=== PATIENT | female | born 1975 | race Caucasian/White ===

== ENCOUNTER 2022-07-27 15:46 | Outpatient (CLI) | payer OTHER, SELFPAY ==
--- NOTE | 2022-07-27 16:30 | MR_ITS ---
[address] [address] Phone:?[phone] Fax:?[phone] Referring Physician Information: Carol Lewis [address] [facility] [address] Phone:?[phone] Fax:?[phone] Patient:Deven Retana D.O.B:?1975 Sex:?Female Phone:?[phone] [facility] MRN:?[id number] Exam Date:?07/27/2022 ? EXAM: MRI of the RIGHT SHOULDER, without contrast CLINICAL INFORMATION: Female, 46 years old, with shoulder pain and swelling after lifting injury one month prior INDICATION: Evaluate rotator cuff insufficiency PRIOR SURGERY: None reported. PLAIN FILMS: None available. COMPARISONS: No prior MRIs available. TECHNICAL INFORMATION: Using a 1.5T MR scanner and a localizing surface coil: Coronals: PD, T2FS Sagittals: PDFS, T2 Axials: PD, PDFS SEDATION: None CONTRAST: None FINDINGS: Bones: Proximal humerus: No fracture or marrow edema/pathology. No humeral Hill-Sachs or reverse Hill-Sachs lesion/impaction or contusion. Glenoid: No fracture or marrow edema/pathology. No osseous Bankart lesion. Rotator cuff and muscles/tendons: Supraspinatus: Mild to moderate supraspinatus tendinosis with bursal sided fraying anteriorly, without more discrete appearance of rotator cuff tear or atrophy. Infraspinatus: No tendinopathy, tear or atrophy. Teres minor: No tendinopathy, tear or atrophy. Subscapularis: Mild subscapularis tendinosis without rotator cuff tear. Deltoid: No strain or atrophy. Coracoacromial arch: Acromion morphology: The acromion has type II morphology. No discrete subacromial osseous spur or os acromiale. Acromiohumeral space: The acromiohumeral space measures 5 mm. Coracohumeral space: The coracohumeral space is within normal limits. Acromioclavicular joint: Joint: No acute injury, arthropathy, or inferior hypertrophy. Ligaments: Coracoclavicular ligaments are intact. Bursae: Subacromial-subdeltoid: Trace subacromial bursal thickening/inflammation. Subcoracoid: No convincing subcoracoid bursal thickening/bursitis. Biceps tendon: The long head of the biceps tendon is present within the bicipital groove. The intra-articular and extra-articular segments are intact without tendinosis, tenosynovitis, or displacement. Glenohumeral joint: Effusion/cyst: No significant glenohumeral joint effusion. Articular cartilage: Humeral head: No osteochondral abnormalities. Glenoid: No osteochondral abnormalities. Loose bodies: No discrete intra-articular body within the joint. Labrum:?No discrete SLAP tear. No other definite evidence for labral tear. No paralabral ganglion cyst is identified. Inferior glenohumeral ligament/axillary pouch:?Intact. The axillary pouch is normal in thickness and signal. No evidence of adhesive capsulitis or capsular injury. IMPRESSION: 1. Tdfm-kx-gtfdaeys supraspinatus, and mild infraspinatus tendinosis without rotator cuff tear. 2. No labral tear or paralabral cyst. 3. No tendinopathy, tear, or displacement of the long head of the biceps tendon. 4. Mild narrowing of the acromiohumeral space may predispose to clinical symptoms of subacromial impingement. Trace subacromial bursal thickening/inflammation. 5. No osteochondral defect. KME Electronically signed on 07/29/2022 12:24:00 PM by Yamileth Wylie M.D.
== END 2022-07-27 15:47 | disposition home or self-care (01) ==
LOC: MRI 15:47
PROVIDERS: PCP Family Medicine; Visit Provider Physician Assistant Surgical
DX: M25.511 Pain in right shoulder (principal); M25.311 Other instability, right shoulder; M75.51 Bursitis of right shoulder
CPT/HCPCS: 73221

== ENCOUNTER 2022-09-20 08:00 | Outpatient (RCR) | payer OTHER, SELFPAY | END 2022-11-07 11:04 | disposition home or self-care (01) | PROVIDERS: PCP Physician Assistant Surgical; Visit Provider Physician Assistant Surgical | DX: M25.311 Other instability, right shoulder (principal); Z51.89 Encounter for other specified aftercare | CPT/HCPCS: 97035; 97110; 97140; 97162 ==

== ENCOUNTER 2023-04-19 07:53 | Day surgery (SDC) | payer OTHER, SELFPAY ==
[2023-04-19] MEDS: LACTATED RINGERS 1000 ML 1,000 ML 100 ML IV ×2 (08:15→11:38)
[2023-04-19 08:17] VITALS: BP 118/88; PULSE 85; RESP 16; TEMP 37.4; O2SAT 99
[2023-04-19 08:23] VITALS: BMI 28.8
--- NOTE | 2023-04-19 09:15 | CRLHL7_ITS ---
For Patients: As a result of the Century Cures Act, medical imaging exams and procedure reports are released immediately into your electronic medical record. You may view this report before your referring provider. If you have questions, please contact your health care provider. BREAST WIRE LOCALIZATION USING ULTRASOUND GUIDANCE CLINICAL HISTORY: Atypia, benign calcifications, presents for surgical excision. LATERALITY: RIGHT breast. LESION: Clip is present in the upper outer quadrant of the RIGHT breast 8 cm from the nipple corresponding to the stereotactic biopsy. LOCALIZATION WIRE: K[place]ans hookwire. TECHNIQUE: The localization wire was placed using real-time ultrasound guidance with image documentation. Cranial-caudal and medial-lateral digital mammograms were obtained after localization wire placement. CONSENT and TIME OUT: The procedure, risks, and alternatives were explained to the patient and a consent was signed. [place] Protocol was followed including pre-procedure verification that relevant information/documentation was available, reviewed and properly matched to the patient; consent accurate and complete; and equipment and supplies available. Time Out was conducted just prior to starting procedure to verify the four required elements: patient identity, correct side/site marked (if applicable), procedure, relevant images/results properly labeled and displayed (if applicable). PROCEDURE: The skin was prepped with ChloraPrep and 8 cc of 1% lidocaine was injected for local anesthesia. The localization wire was placed within or near the targeted breast lesion using ultrasound guidance. The patient tolerated the procedure well. PROXIMITY OF WIRE TO LESION: The wire is located 2.8 millimeters anterior to the biopsy clip on the postprocedure mammogram images. IMPRESSION: Successful breast wire localization. ACR not applicable Dictated by Willian Dukes MD @ 04/19/2023 10:08:59 AM jj/Dictated by: Willian Dukes MD @ 04/19/2023 10:09:00 AM (Electronically Signed)
--- NOTE | 2023-04-19 10:00 | CRLHL7_ITS ---
For Patients: As a result of the Cures Act, medical imaging exams and procedure reports are released immediately into your electronic medical record. You may view this report before your referring provider. If you have questions, please contact your health care provider. RIGHT BREAST SPECIMEN RADIOGRAPH CLINICAL HISTORY: RIGHT breast surgical excision. COMPARISON: 02/21/2023. FINDINGS: Two views of the specimen submitted. Localization wire and biopsy clip noted. IMPRESSION: The specimen contains the localization wire and biopsy clip. Results were immediately verbally reported to Dr. Domínguez. ACR not applicable Dictated by Willian Dukes MD @ 04/19/2023 12:21:44 PM jj/Dictated by: Willian Dukes MD @ 04/19/2023 12:21:00 PM (Electronically Signed)
--- NOTE | 2023-04-19 10:15 | MM_ITS ---
Final Report Patient: CLAUDIA FOURNIER Facility:?[facility] Patient ID:?[id number] :?1975 Study:?XRay Breast Right SPECIMEN-04/19/2023 12:12:33 PM Ordering Physician:Tommie Browne Final Report: RIGHT BREAST SPECIMEN RADIOGRAPH CLINICAL HISTORY: RIGHT breast surgical excision. COMPARISON: 02/21/2023. FINDINGS: Two views of the specimen submitted. Localization wire and biopsy clip noted. IMPRESSION: The specimen contains the localization wire and biopsy clip. Results were immediately verbally reported to Dr. Domínguez. ACR not applicable Dictated by Willian Dukes MD @ 04/19/2023 12:21:44 PM jj/Dictated by: Willian Dukes MD @ 04/19/2023 12:21:00 PM (Electronic Signature)
[2023-04-19] MEDS: CEFAZOLIN 2 GM INJ IVP (10:40)
--- NOTE | 2023-04-19 12:06 | W.ANESCHARGE ---
Anesthesia Charges Start Date/Time Anesthesia Start Date: 04/19/23 Anesthesia Start Time: 10:33 Stop Date/Time Anesthesia Stop Date: 04/19/23 Anesthesia Stop Time: 12:24
--- NOTE | 2023-04-19 12:18 | P.GSOP_ITS ---
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 These were biopsied and found to contain atypical lobular Hyperplasia. She was enrolled in our high-risk screening protocol, however we discussed excisional biopsy to rule out concomitant malignancy which can occur 15% of the time verses surveillance. After discussion she agreed to proceed with excisional biopsy. Procedure Description: After discussing the risks and benefits of the procedure, the patient signed inf ormed consent.? The operative site was marked and the patient was brought to the operating room and placed on the operating table in supine position.? Care was taken to pad the patient's pressure points.?? The patient was then Given sedation by anesthesia.?? The operative site was then prepped and draped in the usual sterile fashion.? A time-out was then performed. A periareolar incision was then created in the upper outer quadrant of the right breast. Dissection was taken down into the subcutaneous tissue and a subcutaneous plane was then developed and taken out laterally until the wire was encountered. This was grasped and then pulled through the skin into the incision. I then using the wire as guidance, dissected out using cautery a mass of breast tissue around the wire. I did take my dissection down to the chest wall as the clip was noted to be deep to the wire and deep within the breast. This was then inked and sent for x-ray. The specimen showed that the clip and the wire were both present within the specimen. The wound was examined for hemostasis which appeared excellent. Local anesthetic was injected into the pectoralis muscle which was visible at the base of the wound. The wound was then closed with 3 0 Vicryl dermal and 4 0 Monocryl running subcuticular suture. Sterile dressings were then applied. ? The patient was then woken and transported to the recovery area in stable condition. ? The patient tolerated the procedure well. Findings: Right breast specimen X-ray showing clip and wire. Anesthesia: MAC Surgeon: Hollie Domínguez MD Estimated blood loss (mL): 10 Specimen: Other Additional Specimen Information: 1) right breast lump/ mass Condition: stable Disposition: same day
[2023-04-19 12:22] VITALS: BP 113/64; PULSE 70; RESP 16; TEMP 36.3; O2SAT 96
--- NOTE | 2023-04-19 12:25 | W.ANESCHARGE ---
Anesthesia Charges Start Date/Time Anesthesia Start Date: 04/19/23 Anesthesia Start Time: 10:33 Stop Date/Time Anesthesia Stop Date: 04/19/23 Anesthesia Stop Time: 12:24
[2023-04-19] MEDS: ACETAMINOPHEN 325 MG TABLET 650 MG PO (12:28)
[2023-04-19 12:50] VITALS: BP 114/72; PULSE 72; RESP 16; O2SAT 97
== END 2023-04-19 13:12 | disposition home or self-care (01) ==
PROVIDERS: PCP Family Medicine; Visit Provider Surgery
PROC: (CPT 19125; principal; 2023-04-19 10:15)
DX: D05.01 Lobular carcinoma in situ of right breast (principal); N60.91 Unspecified benign mammary dysplasia of right breast
CPT/HCPCS: 19125; 00400; 19285; 77065; 88307; 88341; 88342; A9270; C1769; J0690; J1100; J1885; J2250; J2405; J2704; J3010; J7120

== ENCOUNTER 2023-06-27 12:54 | Outpatient (RCR) | payer OTHER, SELFPAY | END 2023-12-24 23:59 | disposition home or self-care (01) | LOC: CCIC 12:54 | PROVIDERS: Visit Provider Internal Medicine Hematology & Oncology | DX: D05.01 Lobular carcinoma in situ of right breast (principal); Z79.818 Long term (current) use of other agents affecting estrogen receptors and estrogen levels; N60.91 Unspecified benign mammary dysplasia of right breast | CPT/HCPCS: 99202; 99205 ==

== ENCOUNTER 2023-08-24 08:06 | Outpatient (CLI) | payer OTHER, SELFPAY ==
--- NOTE | 2023-08-24 08:15 | CRLHL7_ITS ---
For Patients: As a result of the 21st Century Cures Act, medical imaging exams and procedure reports are released immediately into your electronic medical record. You may view this report before your referring provider. If you have questions, please contact your health care provider. BILATERAL BREAST MRI WITHOUT AND WITH GADOLINIUM CLINICAL HISTORY: 47-year-old female with LCIS, ADH of the RIGHT breast. INDICATION FOR BREAST MRI: Screening breast MRI in this high-risk woman. COMPARISON STUDIES: Mammogram 02/21/2023. CONTRAST: Dotarem 20 mL. TECHNIQUE: The patient was positioned prone using a breast coil. Multiple imaging sequences were obtained using 1-1.5 mm thick slices with no gap. The image sequences include T2-weighted STIR in the axial plane, T1-weighted nonfat-saturated gradient echo in the axial plane, pre- and post-contrast T1-weighted FLASH 3D with fat suppression in the axial plane, and T1-weighted FLASH high-resolution 3D with fat suppression in the sagittal plane. Image post-processing was performed on a [employer] TEAM workstation. Complex 3D rendering including maximum intensity projections (MIPS) and volumetric renderings were obtained to optimize visualization of the extent of pathology and relationship to the nipple, skin, and chest wall. This aids in determining feasibility of breast conservation surgery. Subtraction, multiplanar reconstruction, mean curve determination, and angiogenesis mapping were also performed. The study was technically adequate. FINDINGS: Amount of Fibroglandular Tissue: Heterogeneous fibroglandular tissue. Breast Background Enhancement: Marked. RIGHT/LEFT Breast: Postsurgical changes of the RIGHT upper outer breast. Marked background enhancement with scattered foci of enhancement. No suspicious enhancement seen. There are BILATERAL small cysts present. Lymph Nodes: No abnormal axillary lymph nodes are seen. IMPRESSIONS AND RECOMMENDATIONS: No MRI findings for malignancy in either breast. Recommend that the patient continue with yearly screening mammography. If screening MRIs are felt to be indicated, recommend that these be offset at 6-month intervals with the screening mammograms. BI-RADS Category 2: Benign MELINDA SINGH M.D. Diagnostic/Breast Radiologist [email or web address] Transcribed: 11:[address]/Dictated by: Melinda Singh MD @ 08/28/2023 11:47:00 AM (Electronically Signed)
== END 2023-08-24 08:07 | disposition home or self-care (01) ==
PROVIDERS: Visit Provider Surgery
DX: Z12.39 Encounter for other screening for malignant neoplasm of breast (principal); N60.91 Unspecified benign mammary dysplasia of right breast; D05.00 Lobular carcinoma in situ of unspecified breast
CPT/HCPCS: 77049; A9575

== ENCOUNTER 2024-02-22 11:16 | Outpatient (CLI) | payer OTHER, SELFPAY ==
--- OUTSIDE RECORDS SUMMARY | 2024-02-22 11:21 | XMS_ITS | Clinical Summary ---
Author Organization [facility] Address [place], [place] [address] Care Team Providers Care Legend Maker Name Role Phone Hollie Domínguez MD Primary Care Provider + Allergies Active Allergy Reactions Criticality Noted Date Comments Sulfa (Sulfonamide Antibiotics) Vomiting 04/2011 Medications Medication Sig Dispensed Refills Start Date End Date Status loratadine (CLARITIN) 10 mg Tab Take by mouth. 0 05/28/2012 Active acetaminophen (TYLENOL) 325 mg tablet Take by mouth every 4 hours if needed. Max acetaminophen dose: 4000mg in 24 hrs. 0 02/22/2016 Active calcium carbonate-vitamin D3 500mg (1,250mg) -600 unit tab Take by mouth. 0 02/13/2017 Active ibuprofen (ADVIL; MOTRIN) 200 mg tablet Take 3 tablets by mouth every 6 hours. 0 02/25/2018 Active cannabidiol, CBD, extract 100 mg/mL soln Take 500 mg by mouth. 0 12/26/2018 Active montelukast (SINGULAIR) 10 mg tabletIndications: Mild intermittent asthma without complication,Seaso nal allergies Take 1 Tablet (10 mg) by mouth at bedtime. 90 tablet. 3 01/05/2022 Active albuterol HFA (PRO-AIR; VENTOLIN; PROVENTIL) 90 mcg/actuation inhalerIndications :Mild intermittent asthma without complication Inhale 2 Puffs by mouth every 4 hours if needed for Shortness of Breath 1st choice or Wheezing 1st choice. 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 Asthma, mild intermittent Overview: uses MDI with colds Immunizations Name Administration Dates Next Due COVID-19 vaccine ([employer] 30mcg/0.3mL) P F, MDV 10/05/2020,09/15/2020 DTaP 1978,01/31/1978 Influenza, IIV4 (=>6mos) MDV 06/22/2021 MMR 04/04/1978 Polio Virus, Unspecified 1978,01/31/1978 Td (Age >=7 Years) 11/17/2003,01/15/1992 Tdap 01/05/2022,01/02/2010 Family History Medical History Relation Name Comments Good Health Father Diabetes Maternal Aunt Heart Disease Maternal Grandfather Good Health Mother Cancer-breast No Family History Relation Name Status Comments Father Maternal Aunt Maternal Grandfather Mother Social History Tobacco Use Types Packs/Day Years Used Date Smoking Tobacco: Never Smokeless Tobacco: Never Tobacco Cessation:Counseling Given: Yes Alcohol Use Standard Drinks/Week Comments Yes 1 (1 standard drink = 0.6 oz pur e alcohol) sometimes PHQ-2 Answer Date Recorded PHQ-2 TOTAL SCORE 1 01/05/2022 Social Connections Answer Date Recorded Frequency of Communication with Friends and Fami ly Not on file 01/05/2022 Sex and Gender Information Value Date Recorded Sex Assigned at Not on file Gender Identity Not on file Sexual Orientation Not on file Obstetrics History Para Term AB IAB SAB Ectopic Multiple Livin g Live Births 2 2 2 0 0 0 0 0 0 2 2 Date Outcome GA Total Labor Labor/2nd/3rd Weight Sex Delivery Anes PTL Joyce A1 A5 Name Cl in 07/31 Term 40w 0d 19h 00m/ 3.66 kg (8 lb 1 oz) F Vag Epidu ral Payton ng alyss a Delivery Location:[place] 07/20 Term 40w 0d 19h 00m/ 3.83 kg (8 lb 7 oz) M Vag Epidu ral Payton ng kristal s Delivery Location:[place] Last Filed Vital Signs Vital Sign Reading Time Taken Comments Blood Pressure 116/71 01/05/2022 4:09 PM CDT Pulse 71 01/05/2022 4:09 PM CDT Temperature 36.9 ??C (98.4 ??F) 02/25/2018 2:25 PM CD T Respiratory Rate 16 02/22/2017 9:39 AM CDT Oxygen Saturation 99% 01/05/2022 4:09 PM CDT Inhaled Oxygen Concentration - - Weight 82.7 kg (182 lb 4.8 oz) 01/05/2022 4:09 P M CDT Height 169.6 cm (5' 6.77) 01/05/2022 4:09 PM CD T Body Mass Index 28.75 01/05/2022 4:09 PM CDT Plan of Treatment Health Maintenance Due Date Last Done Comments HIV for age 15-65 12/04/1990 Hepatitis C screening for age 18-79 12/04/1993 BMI (ht and wt on same day) for age 18+ 01/05/2023 01/05/2022, 12/26/2018, 02/13/2017, Additional history exists Depression screening for age 12+ 01/05/2023 01/05/2022, 12/26/2018, 12/26/2018, Additional history exists COVID-19 vaccine series ( season) 2023 07/12/2022, 10/05/2020, 09/15/2020 Lipids for age 45-75 12/27/2023 12/26/2018, 04/20/2016, 04/15/2015, Additional history exists Pap test for age 21-65 12/27/2023 9, 12/26/2018, 04/20/2016, Additional history exists Colonoscopy through age 75 04/14/202404/14, 04/14/2019, 04/14/2019 Mammogram for age 45-75 04/19/2024 04/19/20 23, 02/16/2023, 02/13/2023 Influenza for age 9-49 05/25/2024 06/22/2021 Tetanus booster 01/06/2032 01/05/2022, 12/23, 01/02/2010 ([facility] Additional history exists Tdap Completed 01/05/2022, 01/02/2010 Pneumococcal series for age 6-64 Aged Out No longer eligible based on patient's age to complete this topic Procedures Procedure Name Priority Date/Time Associated Diagnosis Comments SCAN-MAMMOGRAPHY REPORT 04/19/2023 12:00 AM CDT COLONOSCOPY SCREENING Routine 04/14/2019 12:00 PM CDT Colon cancer screening LIPID PANEL W REFLEX MEASURED LDL Add On 12/26/2018 11:22 AM CDT Lipid screening CREDIT CLERK THIN PREP PAP SCREEN IMAGED Routine 12/26/2018 11:10 AM CDT Screening for malignant neoplasm of cervix from Last 3 Months or Most Recently Relevant to Health Maintenance Results * SCAN-MAMMOGRAPHY REPORT (04/19/2023 12:00 AM CDT) Anatomical Region Laterality Modality Other Scanner OTHER * COLONOSCOPY SCREENING (04/14/2019 12:00 PM CDT) Dianna Estrada MD GI PROCEDURE ORD * (ABNORMAL) LIPID PANEL W REFLEX MEASURED LDL (12/26/2018 11:22 AM CDT) CHOLESTEROL,TOTAL 181 100 - 199 mg/dL 12/26/2018 4:50 PM CDT [facility] TRIGLYCERIDES 166(H) <150 mg/dL 12/26/2018 4:50 PM CDT [facility] HDL CHOLESTEROL 42 >40 mg/dL 9 4:50 PM CDT [facility] NON-HDL CHOLESTEROL 139 <145 mg/dl 12/26/2018 4:50 PM CDT [facility] CHOL/HDL RATIO 4.31 <4.50 12/26/2018 4:50 PM CDT [facility] LDL CHOLESTEROL 106 <=130 mg/dL 12/26/2018 4:50 PM CDT [facility] PROVIDER ORDERED STATUS RANDOM 12/26/2018 4:50 PM CDT [facility] [employer] [facility] Blood BLOOD SPECIMEN / Unknown Venipuncture / Unknown 12/26/2018 11:22 AM CDT 12/26/2018 11:24 AM CDT Dianna Estrada MD CHEMISTRY [facility] [address] [place] [address], [place] * CREDIT CLERK THIN PREP PAP SCREEN IMAGED [[id number]] (12/26/2018 11:10 AM CDT) Case Report Gynecologic Cytology Report ? Case: [id number] ? Authorizing Provider: ??Dianna Estrada MD ? Collected: ? 12/26/2018 1110 ? Ordering Location: ? [facility] ?? Received: ?12/26/2018 1720 ? Clinic ? First Screen: ?[facility] [place] ? Specimen: ?CREDIT CLERK ThinPrep Vial Screening, Cervical ? 01/07/2019 9:42 AM CDT [facility] INTERPRETATION/ RESULT NEGATIVE FOR INTRAEPITHELIAL LESION OR MALIGNANCY (NIL) (none) 01/07/2019 9:42 AM T [facility] IMEN ADEQUACY Satisfactory for evaluation Endocervical component present 01/07/2019 9:42 AM CDT [facility] HPV REQUEST HPV and PAP 01/07/2019 9:42 AM CDT [facility] Date of LMP 12/08/2018 01/07/2019 9:42 AM CDT [facility] Last Pap Date 04/20/16 01/07/2019 9:42 AM CDT [facility] Last Pap Result NIL 9 9:42 AM [facility] Abnormal Pap or [place] Bx in last 5 years No 01/07/2019 9:42 AM [facility] Menstrual Status Regular Periods 01/07/2019 9:42 AM CDT [facility] [place] Bx Done Today No 01/07/2019 9:42 AM T [facility] Additional Information None given 01/07/2019 9:[address] [facility] Automated Review Successful 01/07/2019 9:[address] [facility] Comment:Specimen processed s uccessfully by automated rock dust sprayer device, ThinPrep Imaging System, [employer] ANCILLARY TESTING CREDIT CLERK HPV Ordered, Please see separate report 01/07/2019 9:[address] [facility] Note The pap test is a screening technique, not a diagnostic procedure. ??It is used primarily to screen for squamous cancers and precursor lesions. ??Published studies have shown that it is subject to both false negative and false positive results. ??The pap test should not be used as the sole means to diagnose or exclude pre-malignant and malignant lesions. Cytology is screened and interpreted at [facility], Central Laboratory - [address] [facility] [address], [place] [address] and [facility] - [address]; [place] [address] and [facility] - [address]; [place] [address] and [facility] [address]; [place] [address] 01/07/2019 9:42 AM CDT [facility]TRAL LABORATORY Other (Cervical) Non-Blood / Unknown 12/26/2018 11:10 AM CDT 12/26/2018 5:20 PM CDT Dianna Estrada MD PATHOLOGY/CYTOLOGY [facility] [address] [place] [address], from Last 3 Months or Most Recently Relevant to Health Maintenance Care Teams Legend Maker Relationship Specialty Start Date End Date Hollie Domínguez MD [address] [place] [address] PCP - General Surgery - General 02/16/23
--- NOTE | 2024-02-22 11:30 | CRLHL7_ITS ---
For Patients: As a result of the Century Cures Act, medical imaging exams and procedure reports are released immediately into your electronic medical record. You may view this report before your referring provider. If you have questions, please contact your health care provider. BILATERAL SCREENING MAMMOGRAM WITH COMPUTER-AIDED DETECTION AND TOMOSYNTHESIS TECHNIQUE: CC and MLO views were obtained. These mammographic images have been obtained using full-field digital technique. These mammographic images were interpreted with the benefit of computer-aided detection. Breast Tomosynthesis was used in this interpretation. COMPARISON FILM: 02/13/23, 02/16/23. FINDINGS: The breasts are heterogeneously dense, which may obscure small masses. IMPRESSION: There is no radiographic evidence for malignancy. ASSESSMENT: BI-RADS Category 2: Benign RECOMMENDATION: Routine screening mammogram in 1 year. A lay language report of this examination will be provided to the patient. Willian Dukes M.D. Diagnostic Radiologist [email or web address] SP/Dictated by: Willian Dukes MD @ 02/25/2024 11:43:00 AM (Electronically Signed)
== END 2024-02-22 11:17 | disposition home or self-care (01) ==
LOC: MAMMO 11:20
PROVIDERS: PCP Student in an Organized Health Care Education/Training Program; Visit Provider Surgery
DX: Z12.31 Encounter for screening mammogram for malignant neoplasm of breast (principal); R92.2 Inconclusive mammogram
CPT/HCPCS: 77063; 77067

== ENCOUNTER 2024-09-03 09:06 | Outpatient (CLI) | payer OTHER, SELFPAY ==
--- NOTE | 2024-09-03 09:15 | CRLHL7_ITS ---
For Patients: As a result of the Century Cures Act, medical imaging exams and procedure reports are released immediately into your electronic medical record. You may view this report before your referring provider. If you have questions, please contact your health care provider. BILATERAL BREAST MRI WITHOUT AND WITH GADOLINIUM CLINICAL HISTORY: Personal history of ADH with excisional biopsy left breast 04/12/2023 INDICATION FOR BREAST MRI: Screening in this woman with increased risk for breast cancer COMPARISON STUDIES: Screening mammogram February 13, 2023, right breast diagnostic February 16, 2023, stereo biopsy February 21, 2023. Breast MRI 08/24/2023 CONTRAST: 20 mL Dotarem TECHNIQUE: The patient was positioned prone using a breast coil. Multiple imaging sequences were obtained using 1-1.5 mm thick slices with no gap. The image sequences include T2-weighted STIR in the axial plane, T1-weighted nonfat-saturated gradient echo in the axial plane, pre- and post-contrast T1-weighted FLASH 3D with fat suppression in the axial plane, and T1-weighted FLASH high resolution 3D with fat suppression in the sagittal plane. Image post-processing was performed on a Doculogy workstation. Complex 3D rendering including maximum intensity projections (MIPS) and volumetric renderings were obtained to optimize visualization of the extent of pathology and relationship to the nipple, skin, and chest wall. This aids in determining feasibility of breast conservation surgery. Subtraction, multiplanar reconstruction, mean curve determination, and angiogenesis mapping were also performed. The study was technically adequate. FINDINGS: Amount of Fibroglandular Tissue: Heterogeneous. Breast Background Enhancement: Moderate RIGHT Breast: No suspicious mass or non mass enhancement LEFT Breast: No suspicious mass or non mass enhancement Lymph Nodes: No suspicious lymph nodes IMPRESSIONS AND RECOMMENDATIONS: Negative for signs of malignancy. Follow up with annual screening mammography. It appears that the patient is overdue for bilateral screening mammogram at this time. If continuing breast MRI this is best offset from mammogram by 6 months. BI-RADS: 1-negative Dictated by Zina Spencer MD @ 09/05/2024 12:08:47 PM (Electronically Signed)
--- NOTE | 2024-11-11 13:12 | ONC.NURNOTE ---
LM for pt checking in if interested in f/u with Med Onc to discuss chemo-prevention.
== END 2024-09-03 09:07 | disposition home or self-care (01) ==
LOC: MRI 09:07
PROVIDERS: PCP Student in an Organized Health Care Education/Training Program; Visit Provider Surgery
DX: Z12.39 Encounter for other screening for malignant neoplasm of breast (principal); N60.91 Unspecified benign mammary dysplasia of right breast; D05.00 Lobular carcinoma in situ of unspecified breast
CPT/HCPCS: 77049; C8908; C8937; A9575

== ENCOUNTER 2024-12-24 10:01 | Outpatient (CLI) | payer OTHER, SELFPAY ==
--- NOTE | 2024-12-24 10:15 | CRLHL7_ITS ---
For Patients: As a result of the Century Cures Act, medical imaging exams and procedure reports are released immediately into your electronic medical record. You may view this report before your referring provider. If you have questions, please contact your health care provider. INDICATION: DERMOID CYST COMPARISON: 12/27/2018 TECHNIQUE: 2D priest scale and color Doppler images were acquired of the pelvis using a transabdominal and transvaginal approach. FINDINGS: Sonographic images demonstrate a normal size and smooth outer contour of the uterus. Uterus measures 11.0 cm in length by 5.7 cm in AP diameter by 6.4 cm in transverse dimension. The myometrium has a normal uniform echotexture. The endometrial lining appears thickened and heterogeneous measures 1.7 cm in composite thickness. The right ovary measures 4.4 x 2.6 x 3.5 cm in size and the left ovary measures 4.2 x 3.2 x 3.6 cm. The ovaries demonstrate normal arterial and venous blood flow on color Doppler analysis. There are no suspicious fluid collections within the cul-de-sac. Solid nonvascular structure within the left ovary measures 10 x 10 x 11 millimeters, previously measuring 12 x 11 x 11 millimeters. Simple cyst left ovary also present which measures 2.0 cm IMPRESSION: Stable dermoid cyst left ovary. Dictated by Willian Dukes MD @ 12/24/2024 1:05:47 PM (Electronically Signed)
--- NOTE | 2024-12-24 11:15 | CRLHL7_ITS ---
For Patients: As a result of the Century Cures Act, medical imaging exams and procedure reports are released immediately into your electronic medical record. You may view this report before your referring provider. If you have questions, please contact your health care provider. INDICATION: Right upper quadrant abdomen pain TECHNIQUE: Ultrasound abdomen limited. Sonographic images of the right upper quadrant were obtained using priest-scale and color Doppler images. COMPARISON: None FINDINGS: Liver: Normal in size and echotexture. No masses. No intrahepatic biliary dilatation. Gallbladder: Status post cholecystectomy Common bile duct: 6 mm. Pancreas: Partially obscured by bowel gas without discrete lesion. Right kidney: Normal in size. Normal echotexture and cortex. No masses, stones, or hydronephrosis. Vasculature: Proximal abdominal aorta and IVC are normal. IMPRESSION: Unremarkable right upper quadrant ultrasound status post cholecystectomy. Dictated by Hood Johnson MD @ 12/24/2024 12:46:16 PM (Electronically Signed)
== END 2024-12-24 10:02 | disposition home or self-care (01) ==
LOC: US 10:02
PROVIDERS: PCP Family Medicine; Visit Provider Family Medicine
DX: R10.11 Right upper quadrant pain (principal); D27.1 Benign neoplasm of left ovary
CPT/HCPCS: 76705; 76830; 76856; 93976

== ENCOUNTER 2025-01-09 13:09 | Outpatient (CLI) | payer OTHER, SELFPAY ==
--- NOTE | 2025-01-09 14:31 | P.ANES_ITS ---
Anesthesia Charges Start Date/Time Anesthesia Start Date: 01/09/25 Anesthesia Start Time: 14:05 Stop Date/Time Anesthesia Stop Date: 01/09/25 Anesthesia Stop Time: 14:28 Coding CPT Codes CPT Codes: ANES LWR INTST SCR COLSC - 26913 ([id number]) P2 - PATIENT W/MILD SYST DISEASE, QK - ORDER ENTRY REPRESENTATIVE 2-4 CNCRNT ANES PROC, QX - METAL NUMERICAL TOOL PROGRAMMER SVC W/ MD MED DIRECTION
--- NOTE | 2025-01-09 14:31 | W.ANESCHARGE ---
Anesthesia Charges Start Date/Time Anesthesia Start Date: 01/09/25 Anesthesia Start Time: 14:05 Stop Date/Time Anesthesia Stop Date: 01/09/25 Anesthesia Stop Time: 14:28 Coding CPT Codes CPT Codes: ANES LWR INTST SCR COLSC - 42040 ([id number]) P2 - PATIENT W/MILD SYST DISEASE, QK - EDITOR NEWSPAPER 2-4 CNCRNT ANES PROC, QX - TRAVELING INVENTORY ASSOCIATE SVC W/ MD MED DIRECTION
--- NOTE | 2025-01-09 15:19 | P.ANES_ITS ---
Anesthesia Charges Start Date/Time Anesthesia Start Date: 01/09/25 Anesthesia Start Time: 14:05 Stop Date/Time Anesthesia Stop Date: 01/09/25 Anesthesia Stop Time: 14:28 Coding CPT Codes CPT Codes: ANES LWR INTST SCR COLSC - 33501 ([id number]) P2 - PATIENT W/MILD SYST DISEASE, QK - DIVISION HEAD 2-4 CNCRNT ANES PROC, QX - VALANCE CUTTER SVC W/ MD MED DIRECTION
--- NOTE | 2025-01-09 15:19 | W.ANESCHARGE ---
Anesthesia Charges Start Date/Time Anesthesia Start Date: 01/09/25 Anesthesia Start Time: 14:05 Stop Date/Time Anesthesia Stop Date: 01/09/25 Anesthesia Stop Time: 14:28 Coding CPT Codes CPT Codes: ANES LWR INTST SCR COLSC - 11658 ([id number]) P2 - PATIENT W/MILD SYST DISEASE, QK - MICROFILM PROCESSOR 2-4 CNCRNT ANES PROC, QX - MARKET CONSULTANT SVC W/ MD MED DIRECTION
== END 2025-01-09 13:10 | disposition home or self-care (01) ==
LOC: OP CLINIC 13:09
PROVIDERS: PCP Family Medicine; Visit Provider Internal Medicine Gastroenterology
DX: Z12.11 Encounter for screening for malignant neoplasm of colon (principal); Z86.0101 Personal history of adenomatous and serrated colon polyps; Z83.719 Family history of colon polyps, unspecified
CPT/HCPCS: 00812; 45378; J2704

== ENCOUNTER 2025-03-19 09:02 | Outpatient (CLI) | payer OTHER, SELFPAY ==
--- NOTE | 2025-03-19 09:15 | CRLHL7_ITS ---
For Patients: As a result of the Century Cures Act, medical imaging exams and procedure reports are released immediately into your electronic medical record. You may view this report before your referring provider. If you have questions, please contact your health care provider. INDICATION: BLATERAL SCREENING MAMMOGRAM, ASYMPTOMATIC 49 Y/O FEMALE COMPARISON: 02/22/2024, 02/13/2023 TECHNIQUE: Digital mammogram in CC and MLO projections including computer-aided detection (CAD) and tomosynthesis. BREAST COMPOSITION: The breasts are heterogeneously dense, which may obscure small masses. FINDINGS: No suspicious findings. ASSESSMENT: BI-RADS 1 Negative RECOMMENDATION: Annual screening mammogram. A lay language report of this examination will be provided to the patient. Dictated by: Willian Dukes MD @ 03/20/2025 09:25:34 (Electronically Signed)
--- OUTSIDE RECORDS SUMMARY | 2025-03-20 00:49 | XMS_ITS | Clinical Summary ---
Author Organization [facility] Address [address] [place] [address] Care Team Providers Care Power Digger Operator Name Role Phone Helen Mcdaniel DO Primary Care Provider [phone] Allergies Active Allergy Reactions Criticality Noted Date Comments Sulfa (Sulfonamide Antibiotics) Vomiting 04/2011 Medications loratadine (CLARITIN) 10 mg Tab Take by mouth. 0 05/28/20 12 Active acetaminophen (TYLENOL) 325 mg tablet Take by mouth every 4 hours if needed. Max acetaminophen dose: 4000mg in 24 hrs. 0 02/22/20 16 Active calcium carbonate-vitami n D3 500mg (1,250mg) -600 unit tab Take by mouth. 0 02/14/20 17 Active ibuprofen (ADVIL; MOTRIN) 200 mg tablet Take 3 tablets by mouth every 6 hours. 0 02/26/20 18 Active albuterol HFA 90 mcg/actuation inhalerIndicatio ns:Mild intermittent asthma without complication (HC) Inhale 2 Puffs by mouth every 4 hours if needed for Shortness of Breath 1st choice or Wheezing 1st choice. 36 g 12/11/19 25 Active montelukast 10 mg tabletIndication s:Mild intermittent asthma without complication (HC),Seasonal allergies Take 1 Tablet (10 mg) by mouth at bedtime. 90 Tablet 3 12/11/19 25 Active polyethylene glycol-electroly te 236-22.74-6.74 -5.86 gram suspensionIndica tions:Encounter for screening colonoscopy Drink 2 liters (half the bottle) the day before colonoscopy and 2 liters (remaining prep) 6 hours prior to colonoscopy appointment. 4000 mL 12/13/19 25 Active Active Problems Problem Noted Date Diagnosed Date Cervical cancer screening 12/25/2024 Overview (12/25/2024): 11/2024 NIL/HPV negative. Plan: Pap/HPV due 11/2029. 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 12/10/2024 Seasonal allergies 01/05/2022 Adenomatous colon polyp 04/15/2019 Overview (04/15/2019): Colonoscopy 03/2019 polyp, repeat in 5 years Bulging lumbar disc with annular tear 04/10/2016 Asthma, mild intermittent Overview (07/04/2012): uses MDI with colds Encounters Date Type Department Care Team Description 01/09/2025 1:15 PM CDT Office Visit [facility] at [address] [address] Daniel Beatty MD from Last 3 Months Immunizations Immunization Administration Dates Next Due COVID-19 vaccine (Snapd App NTDailysingle 30mcg/0.3mL) PF, MDV 07/19/2021,10/05/2020,09/15/2020 DTaP 1978,01/31/1978 Influenza, IIV3 (Age >=3 years) 08/15/2024 Influenza, IIV4 07/11/2023,06/21/2022 Influenza, IIV4 (=>6mos) MDV 06/22/2021 MMR 04/04/1978 Polio Virus, Unspecified 1978,01/31/1978 Td (Age >=7 Years) 11/17/2003,01/15/1992 Tdap 01/05/2022,01/02/2010 Family History Medical History Relation Name Comments Good Health Brother 1 Rheum arthritis Brother 1 Good Health Brother 2 Luke Good Health Brother 3 Good Health Father Price Diabetes Maternal Aunt Heart Disease Maternal Grandfather Good Health Mother Michelle Good Health Sister Cancer-breast No Family History Relation Name Status Comments Brother 1 Alive Brother 2 Luke Alive Brother 3 Alive Father Price Maternal Aunt Maternal Grandfather Mother Michelle Sister Social History Tobacco Use Types Packs/Day Years Used Date Smoking Tobacco: Never Smokeless Tobacco: Never Tobacco Cessation:Counseling Given: Yes Alcohol Use Standard Drinks/Week Comments Yes 1 (1 standard drink = 0.6 oz pur e alcohol) sometimes PHQ-2 Answer Date Recorded PHQ-2 TOTAL SCORE 0 12/10/2024 Social Connections Answer Date Recorded Do you often feel lonely or isolated from those around you? 0 12/08/2024 Financial Resource Strain Answer Date R ecorded Difficulty of Paying Living Expenses 3 12/08/2024 Difficulty of Paying Living Expenses Not on file 12/08/2024 Food Insecurity Answer Date Recorded Do you worry your food will run out before you are able to buy more? 1 12/08/2024 Transportation Needs Answer Date Record ed Does lack of transportation keep you from medica l appointments? 1 12/08/2024 Does lack of transportation keep you from work, meetings or getting things that you need? 1 12/08/2024 Housing Stability Answer Date Recorded What is your housing situation today? 1 12/08/2024 Utilities Answer Date Recorded Do you have trouble paying f or utilities (for example, heat, electricity, water, phone)? 1 12/08/2024 Comments No Sex and Gender Information Value Date Recorded Sex Assigned at Not on file Legal Sex Female 5:24 AM FINANCIAL DATA ANALYST Gender Identity Not on file Sexual Orientation Not on file Obstetrics History Para Term AB IAB SAB Ectopic Multiple Livin g Live Births 2 2 2 0 0 0 0 0 0 2 2 Date Outcome GA Total Labor Labor/2nd/3rd Weight Sex Type Anes PTL Joyce A1 A5 Name Clin 2006 Term 40w 0d 19h 00m/ 3.66 kg (8 lb 1 oz) F Vag Epidur al Livin g dinora Delivery Location:[place] 2008 Term 40w 0d 19h 00m/ 3.83 kg (8 lb 7 oz) M Theo Epidur al Livin g sarah Delivery Location:[place] Last Filed Vital Signs Vital Sign Reading Time Taken Comments Blood Pressure 122/75 12/10/2024 7:44 AM CDT Pulse 79 12/10/2024 7:44 AM CDT Temperature 36.9 C (98.4 F) 02/25/2018 2:25 PM CDT Respiratory Rate 16 02/22/2017 9:39 AM CDT Oxygen Saturation 98% 12/10/2024 7:44 AM CDT Inhaled Oxygen Concentration - - Weight 85.1 kg (187 lb 11.2 oz) 12/10/2024 7:44 AM CDT Height 171 cm (5' 7.32) 12/10/2024 7:44 AM CDT Body Mass Index 29.12 12/10/2024 7:44 AM CDT Plan of Treatment Health Maintenance Due Date Last Done Comments Hepatitis B series for 19+ (1 of 3 - 19+ 3-dose series) 12/04/1994 COVID-19 vaccine series ( season) 2024 07/12/2022, 07/19/2021, 10/05/2020, Additional history exists Mammogram for age 45-75 02/21/2025 02/22/20 24, 04/19/2023, 02/16/2023, Additional history exists BMI (ht and wt on same day) for age 18+ 12/10/2025 12/10/2024, 01/05/2022, 12/26/2018, Additional history exists Depression screening for age 12+ 12/11/2025 12/11/2024, 12/10/2024, 01/05/2022, Additional history exists Lipids for age 45-75 12/10/2029 12/10/2024, 12/26/2018, 04/20/2016, Additional history exists Pap test for age 21-65 12/10/2029 , 12/10/2024, 12/26/2018, Additional history exists Colonoscopy through age 75 01/09/203001/09, 01/09/2025, 04/14/2019, Additional history exists Tetanus booster 01/06/2032 01/05/2022, 12/23, 01/02/2010 [facility] Additional history exists Tdap Completed 01/05/2022, 01/02/2010 Influenza Vaccine Completed 08/15/2024, , 06/21/2022, Additional history exists HIV for age 15-65 Completed 12/10/2024 Hepatitis C screening for age 18-79 Completed 12/10/2024 Pneumococcal series for age 6-49 Aged Out No longer eligible based on patient's age to complete this topic Procedures Procedure Name Priority Date/Time Associated Diagnosis Comments COLONOSCOPY SCREENING Routine 01/09/2025 12:00 AM CDT Family history of colonic polyps BUSINESS AND FINANCIAL COUNSEL THIN PREP PAP SCREEN IMAGED Routine 12/10/2024 9:21 AM CDT Screening for cervical cancer ANTI HIV 1/2 Routine 12/10/2024 8:25 AM CDT Screening for HIV (human immunodeficiency virus) ANTI HCV Routine 12/10/2024 8:25 AM CDT Need for hepatitis C screening test LIPID PANEL W REFLEX MEASURED LDL Routine 12/10/2024 8:25 AM CDT Screening for lipid disorders SCAN-MAMMOGRAPHY REPORT 02/22/2024 12:00 AM CDT from Last 3 Months or Most Recently Relevant to Health Maintenance Results * COLONOSCOPY SCREENING [[id number]] (01/09/2025 12:00 AM CDT) us Helen Mcdaniel DO GI PROCEDURE ORD Edited Resul t - Final * BUSINESS AND FINANCIAL COUNSEL THIN PREP PAP SCREEN IMAGED [[id number]] (12/10/2024 9:21 AM CDT) Case Report Gynecologic Cytology Report Case: [id number] Authorizing Provider: Helen Mcdaniel DO Collected: 12/10/2024920 Ordering Location: [facility] Received: 12/10/2024 0921 Clinic First Screen: [place]ao [place] Specimen: BUSINESS AND FINANCIAL COUNSEL ThinPrep Vial Screening, Cervical 12/23/2024 12:02 PM CDT [facility] INTERPRETATION/ RESULT NEGATIVE FOR INTRAEPITHELIAL LESION OR MALIGNANCY (NIL) (none) 12/23/2024 12:02 PM CDT [facility] at 1202 CDT SPECIMEN ADEQUACY Satisfactory for evaluation Endocervical component present 12/23/2024 12:02 PM CDT [facility] HPV REQUEST HPV and PAP 12/23/2024 12:02 PM CDT [facility] Date of LMP 11/17/24 12/23/2024 12:02 PM CDT [facility] Last Pap Date 12/26/18 12/23/2024 12:02 PM CDT [facility] Last Pap Result NIL 12:02 PM CDT [facility] Abnormal Pap or [place] Bx in last 5 years No 12/23/2024 12:02 PM CDT [facility] Menstrual Status Regular Periods 12/23/2024 12:02 PM CDT [facility] [place] Bx Done Today No 12/23/2024 12:02 PM CDT [facility] Additional Information None given 12/23/2024 12:02 PM CDT [facility] Comment: Cytology is screened at [facility] - [address], [place] [address] and [facility] - [address] [place] [address] and [facility] - [address] [place] [address] Interpreted at [facility] - [address], [place] [address] Automated Review Successful 12/23/2024 12:02 PM CDT [facility] Comment:Specimen processed s uccessfully by automated textile converter device, ThinPrep Imaging System, [employer] ANCILLARY TESTING BUSINESS AND FINANCIAL COUNSEL HPV Ordered, Please see separate report 12/23/2024 12:02 PM CDT [facility] Note The pap test is a screening technique, not a diagnostic procedure. It is used primarily to screen for squamous cancers and precursor lesions. Published studies have shown that it is subject to both false negative and false positive results. The pap test should not be used as the sole means to diagnose or exclude pre-malignant and malignant lesions. 12/23/2024 12:02 PM CDT [facility] Other (Cervical) Non-Blood / Unknown 12/10/2024 9:21 AM CDT 12/10/2024 9:21 AM CDT us Helen Mcdaniel DO PATHOLOGY/CYTOLOGY Final Resu lt [facility] [address] [place] [address], [place] * (ABNORMAL) LIPID PANEL W REFLEX MEASURED LDL [[id number]] (12/10/2024 8:25 AM CDT) CHOLESTEROL, TOTAL 170 <200 mg/dL [facility] HDL CHOLESTEROL 47(L) > OR = 50 mg/dL [facility] TRIGLYCERIDES 139 <150 mg/dL [facility] LDL-CHOLESTEROL 99 mg/dL (calc) [facility] Comment: Reference range: <100 Desirable range <100 mg/dL for primary prevention; <70 mg/dL for patients with CHD or diabetic patients with > or = 2 CHD risk factors. LDL-C is now calculated using the Daniel-Chavez calculation, which is a validated novel method providing better accuracy than the Friedewald equation in the estimation of LDL-C. Daniel SS et al. FANI. 2013;310(19): 3233-7108 (http://education.[employer]/faq/MKE740) CHOL/HDLC RATIO 3.6 <5.0 (calc) [facility] NON HDL CHOLESTEROL 123 <130 mg/dL (calc) [facility] Comment: For patients with diabetes plus 1 major ASCVD risk factor, treating to a non-HDL-C goal of <100 mg/dL (LDL-C of <70 mg/dL) is considered a therapeutic option. Blood BLOOD SPECIMEN / Unknown 12/10/2024 8:25 AM CDT 12/10/2024 8:26 AM CDT Narrative [facility] - 12/11/2024 3:30 AM CDT FASTING:YES FASTING: YES Helen Mcdaniel DO CHEMISTRY Final Result Performing Organization Address [facility]/ZIP Co de Phone Number [employer] [facility] [address] [place] [address], [facility] [address] [place] [address] * ANTI HCV (12/10/2024 8:25 AM CDT) Pathologist [facility] HEPATITIS C ANTIBODY NON-REACTI VE NON-REACT SID [facility] Comment: HCV antibody was non-reactive. There is no laboratory evidence of HCV infection. In most cases, no further action is required. However, if recent HCV exposure is suspected, a test for HCV RNA (test code 87907) is suggested. For additional information please refer to http://education.[employer] Deutsch/faq/UTG29x5 (This link is being provided for informational/ educational purposes only.) Blood BLOOD SPECIMEN / Unknown 12/10/2024 8:25 AM CDT 12/10/2024 8:26 AM CDT Narrative [facility] - 12/11/2024 1:08 PM CDT FASTING:YES FASTING: YES Helen Trivie Violeta DO SEND OUTS Final Result Performing Organization Address [facility] Co de Phone Number [employer] [facility] [address] [place] [address], [facility] [address] [place] [address] * ANTI HIV 1/2 [18513.0] (12/10/2024 8:25 AM CDT) Pathologist [facility] HIV AG/AB, 4TH GEN NON-REACT SID NON-REACT SID [facility] Comment: HIV-1 antigen and HIV-1/HIV-2 antibodies were not detected. There is no laboratory evidence of HIV infection. PLEASE NOTE: This information has been disclosed to you from records whose confidentiality may be protected by state law. If your state requires such protection, then the state law prohibits you from making any further disclosure of the information without the specific written consent of the person to whom it pertains, or as otherwise permitted by law. A general authorization for the release of medical or other information is NOT sufficient for this purpose. For additional information please refer to http://education.[employer]uba.[employer]/faq/RNA982 (This link is being provided for informational/ educational purposes only.) The performance of this assay has not been clinically validated in patients less than 2 years old. Blood BLOOD SPECIMEN / Unknown 12/10/2024 8:25 AM CDT 12/10/2024 8:26 AM CDT Narrative [facility] - 12/11/2024 1:08 PM CDT FASTING:YES FASTING: YES us Helen Joyce Greggbrianna DO SEND OUTS Final Result Performing Organization Address City/State/[facility] Co de Phone Number [facility] [address] [place] [address], [facility] [address] [place] [address] * SCAN-MAMMOGRAPHY REPORT (02/22/2024 12:00 AM CDT) Anatomical Region Laterality Modality Other us Scanner OTHER Final Result from Last 3 Months or Most Recently Relevant to Health Maintenance Insurance [id number] [employer] [place] [id number] WORKERS COMP Care Teams Power Digger Operator Relationship Specialty Start Date End Date Helen Mcdaniel DO [address] [place] [address] PCP - General Family Practice 12/10/24
== END 2025-03-19 09:03 | disposition home or self-care (01) ==
LOC: MAMMO 09:03
PROVIDERS: PCP Family Medicine; Visit Provider Surgery
DX: Z12.31 Encounter for screening mammogram for malignant neoplasm of breast (principal); R92.333 Mammographic heterogeneous density, bilateral breasts
CPT/HCPCS: 77063; 77067

== ENCOUNTER 2025-09-09 09:00 | Outpatient (CLI) | payer OTHER, SELFPAY ==
--- NOTE | 2025-09-09 09:15 | CRLHL7_ITS ---
For Patients: As a result of the Century Cures Act, medical imaging exams and procedure reports are released immediately into your electronic medical record. You may view this report before your referring provider. If you have questions, please contact your health care provider. BILATERAL BREAST MRI WITHOUT AND WITH GADOLINIUM CLINICAL HISTORY: Patient has a history of LCIS, ADH of the RIGHT breast. INDICATION FOR BREAST MRI: Screening breast MRI in this high-risk woman. COMPARISON STUDIES: MRI 08/24/2023. CONTRAST: 14 mL Dotarem. TECHNIQUE: The patient was positioned prone using a breast coil. Multiple imaging sequences were obtained using 1-1.5 mm thick slices with no gap. The image sequences include T2-weighted STIR in the axial plane, T1-weighted nonfat-saturated gradient echo in the axial plane, pre- and post-contrast T1-weighted FLASH 3D with fat suppression in the axial plane, and T1-weighted FLASH high-resolution 3D with fat suppression in the sagittal plane. Image post-processing was performed on a [employer] workstation. Complex 3D rendering including maximum intensity projections (MIPS) and volumetric renderings were obtained to optimize visualization of the extent of pathology and relationship to the nipple, skin, and chest wall. This aids in determining feasibility of breast conservation surgery. Subtraction, multiplanar reconstruction, mean curve determination, and angiogenesis mapping were also performed. The study was technically adequate. FINDINGS: Amount of Fibroglandular Tissue: Heterogeneous fibroglandular tissue. Breast Background Enhancement: Moderate. RIGHT/LEFT Breast: No suspicious enhancement in either breast. Lymph Nodes: No morphologically abnormal axillary lymph nodes. Other Findings: Bilateral small cysts. IMPRESSIONS AND RECOMMENDATIONS: No MRI findings for malignancy in either breast. No morphologically abnormal axillary lymph nodes. Recommend continuing with yearly screening mammography. If screening MRIs are felt to be clinically indicated, recommend that these be offset at six month intervals with the screening mammograms. BI-RADS Category 2: Benign Melinda Singh M.D. Diagnostic/Breast Radiologist [email or web address] ERNESTINA/[email or web address] spencer/Dictated by: Melinda Singh MD @ 09/10/2025 11:42:00 AM (Electronically Signed)
== END 2025-09-09 09:01 | disposition home or self-care (01) ==
LOC: MRI 09:01
PROVIDERS: PCP Family Medicine; Visit Provider Surgery
DX: Z12.39 Encounter for other screening for malignant neoplasm of breast (principal); N60.01 Solitary cyst of right breast; N60.02 Solitary cyst of left breast; D05.00 Lobular carcinoma in situ of unspecified breast; N60.91 Unspecified benign mammary dysplasia of right breast
CPT/HCPCS: 77049; A9575